=== PATIENT | male | born 1945 | race Caucasian/White ===

== ENCOUNTER 2020-10-23 10:47 | Day surgery (SDC) | payer MEDICARE ==
[2020-10-23] MEDS ORDERED: LACTATED RINGERS 1,000 ML IV ONE ×2 (11:33→12:37)
[2020-10-23] MEDS ORDERED: MIDAZOLAM 2 MG/2 ML VIAL ONE ×3 (11:44→12:05)
[2020-10-23] MEDS ORDERED: fentaNYL 250 MCG/5 ML VIAL ONE (11:44)
--- NOTE | 2020-10-23 11:53 | HISTORY & PHYSICAL EXAMINATION ---
Chief Complaint - Chief Complaint Chief Complaint: positive fit/ colon ca screen History of Present Illness - History Obtained From Records Reviewed: yes History obtained from: pt Exam Limitations: none - History of Present Illness HPI Comment/Other: Here for colon cancer screening. Positive fit History - Past Medical History Cardiovascular: reports: Hypertension Respiratory: reports: Sleep apnea, CPAP use Endocrine/Autoimmune: reports: None GI: reports: None : reports: None HEENT: reports: None Psych: reports: None Musculoskeletal: reports: Gout MRSA Hx?: No - Past Surgical History General: reports: Cholecystectomy, Colonoscopy, Other Ortho: reports: Arthroscopic surgery Meds/Allgy - Home Medications Home Medications: Ambulatory Orders Medication Instructions Recorded Confirmed Allopurinol [Zyloprim] 300 mg PO DAILY 10/22/20 10/23/20 Hydrochlorothiazide 12.5 mg PO DAILY 10/22/20 10/23/20 Lisinopril [Prinivil] 10 mg PO DAILY 10/22/20 10/23/20 Metoprolol Succinate [Toprol Xl] 25 mg PO DAILY 10/22/20 10/23/20 Vitamin B Complex 1 tab PO DAILY 10/23/20 10/23/20 - Allergies Allergies/Adverse Reactions: Allergies Allergy/AdvReac Type Severity Reaction Status Date / Time No Known Drug Allergies Allergy Verified 10/22/20 12:05 Review of Systems - Other Findings Other Findings: 10 pt ros as above otherwise unremarkable Exam - Vital Signs Reviewed Vital Signs: Yes Vital Signs: Vital Signs x48h Temp Pulse Resp BP Pulse Ox 10/23/20 11:06 36. C L 85 16 150/90 H 100 - Physical Exam General Appearance: positive: Alert Eyes Bilateral: positive: PERRL, EOMI Neck: positive: No JVD Respiratory: positive: Breath sounds nml Cardiovascular: positive: Regular rate & rhythm Abdomen: positive: Non-tender, No distention Neurologic/Psychiatric: positive: Oriented x3 Conclusion/Plan - Problem List (1) Colon cancer screening Conclusion/Plan: plan colonoscopy. parq held and consent obtained
[2020-10-23] MEDS ORDERED: BUPIVACAINE 0.5%-EPI 1:200000 PF 30 ML VIAL ONE (12:02)
[2020-10-23] MEDS ORDERED: BUPIVACAINE 0.5%-EPI 1:200000 PF 30 ML VIAL SUBQ ONE (12:10)
[2020-10-23 13:02] VITALS: BP 141/84
== END 2020-10-23 10:48 | disposition home or self-care (01) ==
LOC: SDS 10:47
PROVIDERS: ATTEND Surgery
PROC: 0DBP8ZZ Excision of Rectum, Via Natural or Artificial Opening Endoscopic (ICD-10-PCS; principal; 2020-10-23 12:30)
DX: R19.5 Other fecal abnormalities (principal); K64.4 Residual hemorrhoidal skin tags; K62.1 Rectal polyp; G47.30 Sleep apnea, unspecified
CPT/HCPCS: 45380; J3010; J7120

== ENCOUNTER 2021-06-01 08:00 | Outpatient (CLI) | payer MEDICARE ==
--- NOTE | 2021-06-01 14:04 | XRAY Report ---
PROCEDURE: Chest 2 View X-Ray INDICATIONS: PRODUCTIVE COUGH TECHNIQUE: 2 view(s) of the chest. COMPARISON: None. FINDINGS: Surgical changes and devices: Cystectomy clips. Lungs and pleura: No pleural effusions or pneumothorax. Streaky opacities in the left lung base most compatible with atelectasis. Elevation of the left hemidiaphragm. Eventration of the right hemidiaph ragm. Mediastinum: Mediastinal contours are normal. Heart size is normal. Bones and chest wall: No suspicious bony abnormalities. Soft tissues appear unremarkable. IMPRESSION: No acute cardiopulmonary disease process. Reviewed by: Luly Byrne MD, PhD on 06/01/2021 2:03 PM PST Approved by: Luly Byrne MD, PhD on 06/01/2021 2:03 PM PST Station ID: [id number]
== END 2021-06-01 23:59 | disposition home or self-care (01) ==
LOC: DI.S 08:00
PROVIDERS: ATTEND Emergency Medicine
DX: R05.8 Other specified cough (principal)

== ENCOUNTER 2021-06-01 12:15 | Outpatient (CLI) | payer MEDICARE | END 2021-06-01 23:59 | disposition home or self-care (01) | LOC: LAB.S 12:15 | PROVIDERS: ATTEND Emergency Medicine | DX: R05.9 Cough, unspecified (principal); Z20.822 Contact with and (suspected) exposure to COVID-19 ==